=== PATIENT | female | born 1980 | race Caucasian/White ===

== ENCOUNTER 2017-04-13 16:39 | Emergency (ER) | payer OTHER, MEDICAID ==
[~2017-04-13] VITALS: Ht 160 cm; Wt 97.5 kg
[~2017-04-13 16:39] MED LIST: IBUPROFEN 800800 MG PO; NORCO 5-325 TA1 EACH PO; TRIAMCINOLONE A80 G2 TOP
[2017-04-13] MEDS ORDERED: AMOXICILLIN 50500 MG PO (17:11)
[2017-04-13] MEDS ORDERED: NAPROSYN500 MG PO (17:11)
[2017-04-13 17:20] VITALS: BP 143/100
== END 2017-04-13 17:21 | disposition home or self-care (01) ==
LOC: M.ERS 16:39
DX: K02.9 Dental caries, unspecified (principal)

== ENCOUNTER 2017-12-12 12:07 | Emergency (ER) | payer OTHER ==
[~2017-12-12] VITALS: Ht 160 cm; Wt 95.3 kg
[~2017-12-12 12:07] MED LIST changes: +AMOXICILLIN 50500 MG PO; +NAPROSYN500 MG PO
[2017-12-12] MEDS ORDERED: NORCO 5-325 TA1 EACH PO (12:27)
[2017-12-12] MEDS ORDERED: AMOXICILLIN 50500 MG PO (12:27)
[2017-12-12 12:53] VITALS: BP 119/68
== END 2017-12-12 12:54 | disposition home or self-care (01) ==
LOC: M.ERS 12:07
DX: K04.7 Periapical abscess without sinus (principal); F90.9 Attention-deficit hyperactivity disorder, unspecified type; F17.210 Nicotine dependence, cigarettes, uncomplicated

== ENCOUNTER 2018-02-02 19:01 | Emergency (ER) | payer OTHER ==
[~2018-02-02] VITALS: Ht 160 cm; Wt 95.3 kg
[2018-02-02 19:11] VITALS: BP 135/87
[2018-02-02] MEDS ORDERED: ACETAMINOPHEN-1 EAC1 PO (19:47)
[2018-02-02] MEDS ORDERED: AMOXICILLIN 50500 MG PO (19:47)
[2018-02-02] MEDS ORDERED: NABUMETONE 750750 M1 PO (19:47)
== END 2018-02-02 19:55 | disposition home or self-care (01) ==
LOC: M.ERS 19:01
DX: K04.7 Periapical abscess without sinus (principal); F90.9 Attention-deficit hyperactivity disorder, unspecified type; F17.210 Nicotine dependence, cigarettes, uncomplicated

== ENCOUNTER 2019-03-01 15:42 | Emergency (ER) | payer OTHER, MEDICAID ==
[~2019-03-01] VITALS: Ht 162.6 cm; Wt 95.3 kg
[~2019-03-01 15:42] MED LIST changes: +ACETAMINOPHEN-1 EAC1 PO; +NABUMETONE 750750 M1 PO
[2019-03-01] MEDS ORDERED: AMOXICILLIN 50500 MG PO (17:33)
[2019-03-01] MEDS ORDERED: NORCO 5-325 TA1 EAC1 PO (17:33)
[2019-03-01 17:44] VITALS: BP 145/99
== END 2019-03-01 17:44 | disposition home or self-care (01) ==
LOC: M.ERS 15:42
DX: K02.9 Dental caries, unspecified (principal); R03.0 Elevated blood-pressure reading, without diagnosis of hypertension; K03.81 Cracked tooth; F17.210 Nicotine dependence, cigarettes, uncomplicated

== ENCOUNTER 2019-03-02 16:04 | Emergency (ER) | payer OTHER, MEDICAID ==
[~2019-03-02] VITALS: Ht 162.6 cm; Wt 95.3 kg
[~2019-03-02 16:04] MED LIST changes: +NORCO 5-325 TA1 EAC1 PO
[2019-03-02 17:32] LABS: ABSOLUTE EOSINOPHILS 0.1 thou/uL (0.0-0.7); ABSOLUTE MONOCYTES 0.3 thou/uL (0.0-1.2); ABSOLUTE NEUTROPHILS 5.8 thou/uL (1.6-8.1); BASOPHILS 0.6 %; EOSINOPHILS 0.9 %; HEMATOCRIT 43.5 % (37.0-47.0); HEMOGLOBIN 14.6 gm/dL (12.0-15.0); LYMPHOCYTES 13.8 %; MCH 31.5 pg (26.0-34.0); MCHC 33.5 g/dL (28.0-37.0); MCV 94.1 fL (80.0-100.0); MONOCYTES 4.1 %; MPV 8.8 fl. (7.2-11.1); NUCLEATED RBCS 0 /100WBC; PLATELET COUNT* 221 thou/uL (150-400); POLYS 80.6 %; RBC 4.62 mil/uL (4.20-5.00); RDW-CV 14.5 % (10.5-14.5); WBC 7.2 thou/uL (4.0-11.0)
[2019-03-02 18:19] LABS: CALCIUM 8.2 mg/dL (8.5-10.1); CREATININE 0.7 mg/dL (0.6-1.3); PLATELET ESTIMATE ADEQUATE; POTASSIUM 3.9 mmol/L (3.5-5.1)
[2019-03-02 18:20] LABS: LARGE PLATELETS OCCASIONAL
[2019-03-02 18:24] LABS: ALBUMIN 3.2 g/dL (3.4-5.0); TOTAL BILIRUBIN 0.3 mg/dL (<0.1-1.0); TOTAL PROTEIN 7.3 g/dL (6.4-8.2)
[2019-03-02 19:15] VITALS: BP 144/90
== END 2019-03-02 19:16 | disposition home or self-care (01) ==
LOC: M.ERS 16:04
PROVIDERS: Nurse Practitioner Family
DX: K04.7 Periapical abscess without sinus (principal); K02.9 Dental caries, unspecified; F17.210 Nicotine dependence, cigarettes, uncomplicated